=== PATIENT | male | born 1955 | race Caucasian/White ===

== ENCOUNTER 2018-01-04 15:30 | Inpatient (IN) ==
[2018-01-04] MEDS ORDERED: ALBUTEROL 2.5 MG/3 ML NEB RESP TX STA (15:50)
[2018-01-04] MEDS ORDERED: LEVOFLOXACIN INJ 500 MG in PREMIX 1 EACH IV STA (15:50)
[2018-01-04] MEDS ORDERED: SODIUM CHLORIDE 0.9% 1,000 ML IV STA (15:51)
[2018-01-04 16:43] LABS: Basophils % 0.2 % (0.0-0.8); Eosinophils # 0.1 10*3/uL (0.0-0.87); Eosinophils % 0.4 % (0.00-10.9); Hematocrit 39.6 VOL% (42.0-52.0); Hemoglobin 12.8 GM/DL (14.0-18.0); Immature Granulocytes % 0.8 %; Immature Granulocytes Absolute 0.13 #; Lymphocytes # 1.3 10*3/uL (1.4-4.0); Lymphocytes % 7.5 % (21.2-54.2); Mean Corpuscular HGB Conc 32.3 GM/DL (32-36); Mean Corpuscular Hemoglobin 29 PG (27-34); Mean Platelet Volume 8.7 FL (9.6-12.0); Monocytes # 1.7 10*3/uL (0.11-0.8); Monocytes % 10.1 % (1.7-12.7); Neutrophils # 13.4 10*3/uL (1.4-7.4); Platelet Count 455 T/CUMM (130-400); Red Cell Distribution Width 11.8 % (9.3-17.3); White Blood Count 16.6 T/CUMM (4-12)
[2018-01-04 16:51] LABS: INR 1.1; PT Patient Result 11.8 SECS; Partial Thromboplastin Time 31.5 SECS (0-40)
[2018-01-04 17:08] LABS: Bilirubin,Total 0.7 MG/DL (0.2-1.0); Calcium 8.6 MG/DL (8.5-10.1); Osmolality,Calculated 265.2 MOS/KG (273-304); Potassium 3.5 MMOL/L (3.5-5.1); Total Protein 7.7 G/DL (6.4-8.3)
[2018-01-04] MEDS ORDERED: ONDANSETRON 4 MG/2 ML VIAL IV PRN (17:48)
[2018-01-04] MEDS ORDERED: ALBUTEROL 2.5 MG/3 ML NEB RESP TX PRN (17:51)
[2018-01-04] MEDS ORDERED: NON-FORMULARY MEDICATION (Albuterol Sulfate [Ventolin Hfa] 2 PUFF) INH PRN (18:09)
[2018-01-04] MEDS ORDERED: DENOSUMAB 60 MG/ML SYRINGE SUBCUT SCH (18:30)
[2018-01-04] MEDS: ALBUTEROL/IPRATROPIUM 3 ML NEB RESP TX SCH (19:40)
[2018-01-04] MEDS ORDERED: cefTRIAXone 1,000 MG in SYRINGE 1 EACH IV SCH (21:00)
[2018-01-04] MEDS: busPIRone 10 MG TABLET PO SCH (21:31)
[2018-01-04] MEDS: clonazePAM 0.5 MG TABLET PO SCH (21:32)
[2018-01-04] MEDS: DOCUSATE SODIUM 100 MG CAPSULE PO SCH (21:32)
[2018-01-04] MEDS: FLUTICASONE/SALMETEROL 250-50 DISKUS 14 DOSE INH SCH (21:32)
[2018-01-04] MEDS: SODIUM CHLORIDE 0.9% 1,000 ML IV SCH (21:32)
[2018-01-04] MEDS: AZITHROMYCIN INJ 500 MG in SODIUM CHLORIDE 0.9% 250 ML IV SCH (21:38)
[2018-01-05] MEDS: ALBUTEROL/IPRATROPIUM 3 ML NEB RESP TX SCH ×4 (00:46→19:08)
[2018-01-05 06:34] LABS: Basophils # 0.1 10*3/uL (0.0-0.2); Basophils % 0.3 % (0.0-0.8); Eosinophils # 0.2 10*3/uL (0.0-0.87); Eosinophils % 1.1 % (0.00-10.9); Hemoglobin 11.9 GM/DL (14.0-18.0); Immature Granulocytes % 0.9 %; Immature Granulocytes Absolute 0.14 #; Lymphocytes # 2.3 10*3/uL (1.4-4.0); Lymphocytes % 14.6 % (21.2-54.2); Mean Corpuscular HGB Conc 31.3 GM/DL (32-36); Mean Corpuscular Hemoglobin 29 PG (27-34); Mean Corpuscular Volume 92.2 FL (87-102); Monocytes # 1.9 10*3/uL (0.11-0.8); Monocytes % 12.4 % (1.7-12.7); Neutrophils # 11.1 10*3/uL (1.4-7.4); Neutrophils % 70.7 % (38.7-73.9); Platelet Count 482 T/CUMM (130-400); Red Blood Count 4.12 MC/CUMM (3.8-5.5); Red Cell Distribution Width 11.9 % (9.3-17.3); White Blood Count 15.7 T/CUMM (4-12)
[2018-01-05 06:49] LABS: Calcium 7.8 MG/DL (8.5-10.1); Osmolality,Calculated 276.4 MOS/KG (273-304); Potassium 3.7 MMOL/L (3.5-5.1)
[2018-01-05] MEDS: ACETAMINOPHEN 325 MG TABLET PO PRN (08:36)
[2018-01-05] MEDS: MAGNESIUM OXIDE 400 MG TABLET PO SCH (08:37)
[2018-01-05] MEDS: CLOPIDOGREL 75 MG TABLET PO SCH (08:37)
[2018-01-05] MEDS: DOCUSATE SODIUM 100 MG CAPSULE PO SCH ×3 (08:37→21:12)
[2018-01-05] MEDS: busPIRone 10 MG TABLET PO SCH ×2 (08:37→21:12)
[2018-01-05] MEDS: clonazePAM 0.5 MG TABLET PO SCH ×2 (08:37→21:12)
[2018-01-05] MEDS: PANTOPRAZOLE 40 MG TABLET PO SCH (08:37)
[2018-01-05] MEDS: CHOLECALCIFEROL 5,000 UNIT TABLET PO SCH (08:41)
[2018-01-05] MEDS: FLUTICASONE/SALMETEROL 250-50 DISKUS 14 DOSE INH SCH ×2 (08:41→21:13)
[2018-01-05] MEDS ORDERED: NON-FORMULARY MEDICATION (Tiotropium Inhalation 18 MCG) INH SCH (09:00)
[2018-01-05] MEDS: CEFEPIME 1,000 MG in SYRINGE 1 EACH IV SCH (14:06)
[2018-01-05] MEDS ORDERED: TUBERCULIN SKIN TEST 0.1 ML SYRINGE INTRADERM ONE (15:00)
[2018-01-05] MEDS: SODIUM CHLORIDE 0.9% 1,000 ML IV SCH (17:39)
[2018-01-05] MEDS: AZITHROMYCIN INJ 500 MG in SODIUM CHLORIDE 0.9% 250 ML IV SCH (21:14)
[2018-01-05] MEDS: guaiFENesin/DM ER 600-30 MG TABLET PO PRN (21:36)
[2018-01-06] MEDS: CEFEPIME 1,000 MG in SYRINGE 1 EACH IV SCH ×3 (00:12→23:02)
[2018-01-06] MEDS: ACETAMINOPHEN 325 MG TABLET PO PRN (00:26)
[2018-01-06] MEDS: ALBUTEROL/IPRATROPIUM 3 ML NEB RESP TX SCH ×4 (00:52→19:28)
[2018-01-06] MEDS: methylPREDNISolone SOD SUC 40 MG/1 ML VIAL IV SCH ×2 (09:15→20:17)
[2018-01-06] MEDS: clonazePAM 0.5 MG TABLET PO SCH ×2 (09:15→20:15)
[2018-01-06] MEDS: CLOPIDOGREL 75 MG TABLET PO SCH (09:16)
[2018-01-06] MEDS: MAGNESIUM OXIDE 400 MG TABLET PO SCH (09:16)
[2018-01-06] MEDS: DOCUSATE SODIUM 100 MG CAPSULE PO SCH ×2 (09:16→20:15)
[2018-01-06] MEDS: PANTOPRAZOLE 40 MG TABLET PO SCH (09:16)
[2018-01-06] MEDS: CHOLECALCIFEROL 5,000 UNIT TABLET PO SCH (09:16)
[2018-01-06] MEDS: busPIRone 10 MG TABLET PO SCH ×2 (09:16→20:15)
[2018-01-06] MEDS: FLUTICASONE/SALMETEROL 250-50 DISKUS 14 DOSE INH SCH ×2 (09:17→20:16)
[2018-01-06] MEDS: SODIUM CHLORIDE 0.9% 1,000 ML IV SCH (13:40)
[2018-01-06] MEDS ORDERED: OXYMETAZOLINE 0.05% NASAL SPRAY 15 ML BOTTLE BOTH NARES PRN (15:08)
[2018-01-06] MEDS ORDERED: ALPRAZolam 0.25 MG TABLET PO PRN (15:12)
[2018-01-06] MEDS ORDERED: SODIUM CHLORIDE 0.65% NASAL SPRAY 45 ML BOTTLE BOTH NARES PRN (15:12)
[2018-01-06] MEDS: AZITHROMYCIN 250 MG TABLET PO SCH (20:15)
[2018-01-07] MEDS: ALBUTEROL/IPRATROPIUM 3 ML NEB RESP TX SCH ×4 (00:57→19:11)
[2018-01-07 06:55] LABS: Hematocrit 35.4 VOL% (42.0-52.0); Hemoglobin 10.8 GM/DL (14.0-18.0); Immature Granulocytes % 0.5 %; Immature Granulocytes Absolute 0.03 #; Lymphocytes # 0.5 10*3/uL (1.4-4.0); Mean Corpuscular HGB Conc 30.5 GM/DL (32-36); Mean Corpuscular Hemoglobin 28 PG (27-34); Mean Corpuscular Volume 93.2 FL (87-102); Monocytes # 0.5 10*3/uL (0.11-0.8); Monocytes % 8.1 % (1.7-12.7); Neutrophils # 5.2 10*3/uL (1.4-7.4); Neutrophils % 83.4 % (38.7-73.9); Platelet Count 356 T/CUMM (130-400); Red Cell Distribution Width 11.8 % (9.3-17.3); White Blood Count 6.3 T/CUMM (4-12)
[2018-01-07 07:09] LABS: Calcium 8.2 MG/DL (8.5-10.1); Potassium 4.2 MMOL/L (3.5-5.1)
[2018-01-07 07:22] LABS: Calcium 8.1 MG/DL (8.5-10.1); Osmolality,Calculated 286.8 MOS/KG (273-304); Potassium 4.2 MMOL/L (3.5-5.1)
[2018-01-07] MEDS: PANTOPRAZOLE 40 MG TABLET PO SCH (08:45)
[2018-01-07] MEDS: MAGNESIUM OXIDE 400 MG TABLET PO SCH (08:45)
[2018-01-07] MEDS: DOCUSATE SODIUM 100 MG CAPSULE PO SCH ×2 (08:45→21:17)
[2018-01-07] MEDS: CLOPIDOGREL 75 MG TABLET PO SCH (08:45)
[2018-01-07] MEDS: clonazePAM 0.5 MG TABLET PO SCH ×2 (08:45→21:18)
[2018-01-07] MEDS: methylPREDNISolone SOD SUC 40 MG/1 ML VIAL IV SCH ×2 (08:45→21:17)
[2018-01-07] MEDS: CHOLECALCIFEROL 5,000 UNIT TABLET PO SCH (08:45)
[2018-01-07] MEDS: busPIRone 10 MG TABLET PO SCH ×2 (08:45→21:17)
[2018-01-07] MEDS: guaiFENesin/DM ER 600-30 MG TABLET PO PRN (08:45)
[2018-01-07] MEDS: FLUTICASONE/SALMETEROL 250-50 DISKUS 14 DOSE INH SCH ×2 (08:49→21:18)
[2018-01-07] MEDS: CEFEPIME 1,000 MG in SYRINGE 1 EACH IV SCH (12:28)
[2018-01-07] MEDS: SODIUM CHLORIDE 0.9% 1,000 ML IV SCH (12:28)
[2018-01-07] MEDS: AZITHROMYCIN 250 MG TABLET PO SCH (21:17)
[2018-01-08] MEDS: ALBUTEROL/IPRATROPIUM 3 ML NEB RESP TX SCH ×4 (00:03→19:30)
[2018-01-08] MEDS: CEFEPIME 1,000 MG in SYRINGE 1 EACH IV SCH ×2 (01:57→12:51)
[2018-01-08 05:42] LABS: Basophils % 0.1 % (0.0-0.8); Hematocrit 35.2 VOL% (42.0-52.0); Hemoglobin 10.8 GM/DL (14.0-18.0); Immature Granulocytes % 0.8 %; Immature Granulocytes Absolute 0.07 #; Lymphocytes # 0.5 10*3/uL (1.4-4.0); Mean Corpuscular HGB Conc 30.7 GM/DL (32-36); Mean Corpuscular Hemoglobin 29 PG (27-34); Mean Corpuscular Volume 93.4 FL (87-102); Mean Platelet Volume 8.9 FL (9.6-12.0); Monocytes # 0.6 10*3/uL (0.11-0.8); Neutrophils # 8.1 10*3/uL (1.4-7.4); Neutrophils % 88.1 % (38.7-73.9); Platelet Count 393 T/CUMM (130-400); Red Blood Count 3.77 MC/CUMM (3.8-5.5); Red Cell Distribution Width 11.9 % (9.3-17.3); White Blood Count 9.2 T/CUMM (4-12)
[2018-01-08 06:07] LABS: Osmolality,Calculated 286.8 MOS/KG (273-304); Potassium 4.1 MMOL/L (3.5-5.1)
[2018-01-08] MEDS: methylPREDNISolone SOD SUC 40 MG/1 ML VIAL IV SCH ×2 (06:40→21:58)
[2018-01-08] MEDS: clonazePAM 0.5 MG TABLET PO SCH ×2 (10:24→22:15)
[2018-01-08] MEDS: CLOPIDOGREL 75 MG TABLET PO SCH (10:24)
[2018-01-08] MEDS: busPIRone 10 MG TABLET PO SCH ×2 (10:24→22:16)
[2018-01-08] MEDS: FLUTICASONE/SALMETEROL 250-50 DISKUS 14 DOSE INH SCH ×2 (10:25→22:20)
[2018-01-08] MEDS: DOCUSATE SODIUM 100 MG CAPSULE PO SCH ×2 (10:25→22:15)
[2018-01-08] MEDS: CHOLECALCIFEROL 5,000 UNIT TABLET PO SCH (10:25)
[2018-01-08] MEDS: PANTOPRAZOLE 40 MG TABLET PO SCH (10:29)
[2018-01-08] MEDS: SODIUM CHLORIDE 0.9% 1,000 ML IV SCH (10:29)
[2018-01-08] MEDS: MAGNESIUM OXIDE 400 MG TABLET PO SCH (10:29)
[2018-01-08] MEDS: guaiFENesin/DM ER 600-30 MG TABLET PO PRN (22:15)
[2018-01-08] MEDS: AZITHROMYCIN 250 MG TABLET PO SCH (22:16)
[2018-01-09] MEDS: CEFEPIME 1,000 MG in SYRINGE 1 EACH IV SCH ×2 (00:29→11:40)
[2018-01-09] MEDS: ALBUTEROL/IPRATROPIUM 3 ML NEB RESP TX SCH ×4 (00:36→19:01)
[2018-01-09] MEDS: SODIUM CHLORIDE 0.9% 1,000 ML IV SCH (06:00)
[2018-01-09] MEDS: busPIRone 10 MG TABLET PO SCH ×2 (08:33→22:59)
[2018-01-09] MEDS: MAGNESIUM OXIDE 400 MG TABLET PO SCH (08:33)
[2018-01-09] MEDS: CHOLECALCIFEROL 5,000 UNIT TABLET PO SCH (08:33)
[2018-01-09] MEDS: DOCUSATE SODIUM 100 MG CAPSULE PO SCH ×2 (08:33→22:58)
[2018-01-09] MEDS: clonazePAM 0.5 MG TABLET PO SCH ×2 (08:33→22:59)
[2018-01-09] MEDS: methylPREDNISolone SOD SUC 40 MG/1 ML VIAL IV SCH ×2 (08:33→21:57)
[2018-01-09] MEDS: CLOPIDOGREL 75 MG TABLET PO SCH (08:33)
[2018-01-09] MEDS: PANTOPRAZOLE 40 MG TABLET PO SCH (08:33)
[2018-01-09] MEDS: FLUTICASONE/SALMETEROL 250-50 DISKUS 14 DOSE INH SCH ×2 (08:36→23:01)
[2018-01-09] MEDS: guaiFENesin/DM ER 600-30 MG TABLET PO PRN ×2 (16:25→22:59)
[2018-01-09] MEDS: ACETAMINOPHEN 325 MG TABLET PO PRN (22:58)
[2018-01-09] MEDS: AZITHROMYCIN 250 MG TABLET PO SCH (22:59)
[2018-01-10] MEDS: CEFEPIME 1,000 MG in SYRINGE 1 EACH IV SCH ×2 (00:22→11:26)
[2018-01-10] MEDS: ALBUTEROL/IPRATROPIUM 3 ML NEB RESP TX SCH ×4 (00:35→19:25)
[2018-01-10] MEDS: SODIUM CHLORIDE 0.9% 1,000 ML IV SCH ×2 (02:12→21:41)
[2018-01-10 06:13] LABS: Basophils % 0.1 % (0.0-0.8); Hematocrit 39.7 VOL% (42.0-52.0); Immature Granulocytes % 0.9 %; Immature Granulocytes Absolute 0.07 #; Lymphocytes # 0.6 10*3/uL (1.4-4.0); Lymphocytes % 7.4 % (21.2-54.2); Mean Corpuscular HGB Conc 30.2 GM/DL (32-36); Mean Corpuscular Hemoglobin 29 PG (27-34); Mean Corpuscular Volume 95.9 FL (87-102); Mean Platelet Volume 8.6 FL (9.6-12.0); Monocytes # 0.4 10*3/uL (0.11-0.8); Monocytes % 4.9 % (1.7-12.7); Neutrophils # 6.8 10*3/uL (1.4-7.4); Neutrophils % 86.7 % (38.7-73.9); Platelet Count 394 T/CUMM (130-400); Red Blood Count 4.14 MC/CUMM (3.8-5.5); Red Cell Distribution Width 11.9 % (9.3-17.3); White Blood Count 7.8 T/CUMM (4-12)
[2018-01-10 06:32] LABS: Calcium 7.9 MG/DL (8.5-10.1); Osmolality,Calculated 287.8 MOS/KG (273-304); Potassium 4.7 MMOL/L (3.5-5.1)
[2018-01-10] MEDS: DOCUSATE SODIUM 100 MG CAPSULE PO SCH ×2 (09:12→21:43)
[2018-01-10] MEDS: clonazePAM 0.5 MG TABLET PO SCH ×2 (09:12→21:43)
[2018-01-10] MEDS: FLUTICASONE/SALMETEROL 250-50 DISKUS 14 DOSE INH SCH ×2 (09:12→21:56)
[2018-01-10] MEDS: methylPREDNISolone SOD SUC 40 MG/1 ML VIAL IV SCH ×2 (09:12→21:40)
[2018-01-10] MEDS: CHOLECALCIFEROL 5,000 UNIT TABLET PO SCH (09:12)
[2018-01-10] MEDS: CLOPIDOGREL 75 MG TABLET PO SCH (09:12)
[2018-01-10] MEDS: PANTOPRAZOLE 40 MG TABLET PO SCH (09:12)
[2018-01-10] MEDS: busPIRone 10 MG TABLET PO SCH ×2 (09:12→21:43)
[2018-01-10] MEDS: MAGNESIUM OXIDE 400 MG TABLET PO SCH (09:12)
[2018-01-10] MEDS ORDERED: MAGNESIUM HYDROXIDE SUSP 30 ML UDCUP PO PRN ×2 (10:38→12:33)
[2018-01-10] MEDS ORDERED: POLYETHYLENE GLYCOL POWDER 17 GM PACK PO PRN (12:32)
[2018-01-10] MEDS: guaiFENesin/DM ER 600-30 MG TABLET PO PRN (21:43)
[2018-01-10] MEDS: AZITHROMYCIN 250 MG TABLET PO SCH (21:49)
[2018-01-11] MEDS: ALBUTEROL/IPRATROPIUM 3 ML NEB RESP TX SCH ×4 (00:26→20:27)
[2018-01-11] MEDS: CEFEPIME 1,000 MG in SYRINGE 1 EACH IV SCH ×2 (00:32→12:55)
[2018-01-11] MEDS: CLOPIDOGREL 75 MG TABLET PO SCH (09:41)
[2018-01-11] MEDS: MAGNESIUM OXIDE 400 MG TABLET PO SCH (09:41)
[2018-01-11] MEDS: busPIRone 10 MG TABLET PO SCH ×2 (09:41→21:01)
[2018-01-11] MEDS: clonazePAM 0.5 MG TABLET PO SCH ×2 (09:41→21:01)
[2018-01-11] MEDS: CHOLECALCIFEROL 5,000 UNIT TABLET PO SCH (09:41)
[2018-01-11] MEDS: methylPREDNISolone SOD SUC 40 MG/1 ML VIAL IV SCH ×2 (09:42→21:02)
[2018-01-11] MEDS: FLUTICASONE/SALMETEROL 250-50 DISKUS 14 DOSE INH SCH ×2 (09:42→21:04)
[2018-01-11] MEDS: PANTOPRAZOLE 40 MG TABLET PO SCH (09:42)
[2018-01-11] MEDS: DOCUSATE SODIUM 100 MG CAPSULE PO SCH ×2 (09:42→21:02)
[2018-01-11] MEDS: SODIUM CHLORIDE 0.9% 1,000 ML IV SCH (18:18)
[2018-01-11] MEDS: AZITHROMYCIN 250 MG TABLET PO SCH (21:01)
[2018-01-11] MEDS: guaiFENesin/DM ER 600-30 MG TABLET PO PRN (21:01)
[2018-01-12] MEDS: ALBUTEROL/IPRATROPIUM 3 ML NEB RESP TX SCH ×2 (00:23→07:38)
[2018-01-12] MEDS: CEFEPIME 1,000 MG in SYRINGE 1 EACH IV SCH (01:03)
[2018-01-12 08:09] VITALS: BP 125/61
[2018-01-12] MEDS: CLOPIDOGREL 75 MG TABLET PO SCH (09:14)
[2018-01-12] MEDS: DOCUSATE SODIUM 100 MG CAPSULE PO SCH (09:15)
[2018-01-12] MEDS: CHOLECALCIFEROL 5,000 UNIT TABLET PO SCH (09:15)
[2018-01-12] MEDS: busPIRone 10 MG TABLET PO SCH (09:15)
[2018-01-12] MEDS: MAGNESIUM OXIDE 400 MG TABLET PO SCH (09:15)
[2018-01-12] MEDS: clonazePAM 0.5 MG TABLET PO SCH (09:15)
[2018-01-12] MEDS: PANTOPRAZOLE 40 MG TABLET PO SCH (09:15)
[2018-01-12] MEDS: methylPREDNISolone SOD SUC 40 MG/1 ML VIAL IV SCH (09:16)
[2018-01-12] MEDS: FLUTICASONE/SALMETEROL 250-50 DISKUS 14 DOSE INH SCH (09:16)
[2018-01-13 16:12] LABS: TB2 Ag Minus Result -0.01 IU/mL
== END 2018-01-12 11:46 | disposition home or self-care (01) | DRG 139 ==
LOC: N.ED 15:30 → SUATTDRO 17:48 → N.EDINP 17:48 → N.5E 18:19 → N.ICU 01-05 15:43 → N.2E 01-07 18:06
PROVIDERS: ADMIT Internal Medicine; ATTEND Internal Medicine

== ENCOUNTER 2018-09-03 01:27 | Inpatient (IN) ==
[2018-09-03] MEDS ORDERED: BISACODYL 5 MG TABLET PO PRN (03:56)
[2018-09-03] MEDS ORDERED: ONDANSETRON 4 MG/2 ML VIAL IV PRN (03:56)
[2018-09-03] MEDS ORDERED: ACETAMINOPHEN 325 MG TABLET PO PRN (03:56)
[2018-09-03] MEDS ORDERED: NICOTINE 21 MG/24 HR PATCH TRANSDERM PRN (03:56)
[2018-09-03] MEDS ORDERED: guaiFENesin/DM ER 600-30 MG TABLET PO PRN (03:56)
[2018-09-03] MEDS ORDERED: diphenhydrAMINE CAP 25 MG CAPSULE PO PRN (03:56)
[2018-09-03] MEDS ORDERED: traZODone 50 MG TABLET PO PRN (03:56)
[2018-09-03 04:15] LABS: Allen Test Positive
[2018-09-03 04:17] LABS: ABG HCO3 28.8 MMOL/L (20-26); ABG Oxygen Saturation 95.4 % (95-100); ABG PCO2 60.1 MM HG (35-48); ABG PH 7.346 (7.35-7.45); ABG PO2 79.9 MM HG (80-95); ABG TCO2 28.5 MMOL/L (23-27)
[2018-09-03] MEDS: methylPREDNISolone SOD SUC 40 MG/1 ML VIAL IV SCH ×2 (04:47→11:22)
[2018-09-03] MEDS: MORPHINE 4 MG/1 ML VIAL IV PRN (05:48)
[2018-09-03 05:51] LABS: Basophils % 0.2 % (0.0-0.8); Eosinophils % 0.1 % (0.00-10.9); Hematocrit 43.6 VOL% (42.0-52.0); Hemoglobin 13.4 GM/DL (14.0-18.0); Immature Granulocytes % 0.2 %; Immature Granulocytes Absolute 0.02 #; Lymphocytes # 0.3 10*3/uL (1.4-4.0); Lymphocytes % 3.6 % (21.2-54.2); Mean Corpuscular HGB Conc 30.7 GM/DL (32-36); Mean Corpuscular Volume 93.6 FL (87-102); Mean Platelet Volume 9.2 FL (9.6-12.0); Monocytes % 1.2 % (1.7-12.7); Neutrophils % 94.7 % (38.7-73.9); Platelet Count 268 T/CUMM (130-400); Red Blood Count 4.66 MC/CUMM (3.8-5.5); Red Cell Distribution Width 11.7 % (9.3-17.3); White Blood Count 8.6 T/CUMM (4-12)
[2018-09-03 05:54] LABS: PT Patient Result 11.1 SECS; Partial Thromboplastin Time 26.7 SECS (0-40)
[2018-09-03 06:10] LABS: Calcium 8.5 MG/DL (8.5-10.1); Osmolality,Calculated 277.5 MOS/KG (273-304)
[2018-09-03 06:13] LABS: Band Neutrophils 1 % (0-10); Lymphocytes 6 % (20-55); Platelet Estimate Adequate; Segmented Neutrophils 92 % (50-85); Total Cells Counted 100
[2018-09-03 06:14] LABS: Hypochromasia 1+
[2018-09-03] MEDS: ALBUTEROL/IPRATROPIUM 3 ML NEB RESP TX SCH ×3 (07:35→19:12)
[2018-09-03] MEDS: cefTRIAXone 1,000 MG in SYRINGE 1 EACH IV SCH (07:39)
[2018-09-03] MEDS: AZITHROMYCIN INJ 500 MG in SODIUM CHLORIDE 0.9% 250 ML IV SCH (07:39)
[2018-09-03] MEDS: PANTOPRAZOLE 40 MG TABLET PO SCH ×2 (07:40→08:22)
[2018-09-03] MEDS ORDERED: MAGNESIUM SULF RIDER 2 GM in PREMIX 1 EACH IV PRN (14:47)
[2018-09-03] MEDS ORDERED: DIAZEPAM 5 MG TABLET PO ONE (14:47)
[2018-09-03] MEDS ORDERED: diphenhydrAMINE CAP 25 MG CAPSULE PO ONE (14:47)
[2018-09-03] MEDS ORDERED: POTASSIUM CHLORIDE RIDER 10 MEQ in PREMIX 1 EACH IV PRN (14:47)
[2018-09-03] MEDS ORDERED: LIDOCAINE 1% 20 ML VIAL ONE (15:17)
[2018-09-03] MEDS ORDERED: HYDROmorphone 2 MG/1 ML VIAL ONE (15:29)
[2018-09-03] MEDS ORDERED: MIDAZOLAM 2 MG/2 ML VIAL ONE (15:29)
[2018-09-03] MEDS ORDERED: ASPIRIN CHEW 81 MG TABLET PO ONE (15:50)
[2018-09-03] MEDS ORDERED: ADENOSINE 90 MG/30 ML VIAL IV ONE (16:07)
[2018-09-03] MEDS ORDERED: ENOXAPARIN 30 MG/0.3 ML SYRINGE ONE (16:11)
[2018-09-03] MEDS: CLOPIDOGREL 75 MG TABLET PO SCH (17:37)
[2018-09-03] MEDS: ARFORMOTEROL 15 MCG/2 ML NEB RESP TX SCH (19:12)
[2018-09-04] MEDS: methylPREDNISolone SOD SUC 40 MG/1 ML VIAL IV SCH ×5 (00:39→18:04)
[2018-09-04] MEDS: ALBUTEROL/IPRATROPIUM 3 ML NEB RESP TX SCH ×4 (00:45→19:16)
[2018-09-04 06:53] LABS: Basophils % 0.1 % (0.0-0.8); Eosinophils % 0.1 % (0.00-10.9); Hematocrit 40.1 VOL% (42.0-52.0); Hemoglobin 12.6 GM/DL (14.0-18.0); Immature Granulocytes % 0.4 %; Immature Granulocytes Absolute 0.04 #; Lymphocytes # 0.6 10*3/uL (1.4-4.0); Mean Corpuscular HGB Conc 31.4 GM/DL (32-36); Mean Corpuscular Volume 94.1 FL (87-102); Mean Platelet Volume 9.8 FL (9.6-12.0); Monocytes % 5.5 % (1.7-12.7); Neutrophils % 86.9 % (38.7-73.9); Platelet Count 213 T/CUMM (130-400); Red Blood Count 4.26 MC/CUMM (3.8-5.5); Red Cell Distribution Width 11.6 % (9.3-17.3); White Blood Count 9.1 T/CUMM (4-12)
[2018-09-04 07:20] LABS: CKMB % 5.4 %; Osmolality,Calculated 282.4 MOS/KG (273-304)
[2018-09-04 07:22] LABS: Troponin I 0.245 NG/ML (0.00-0.045)
[2018-09-04] MEDS: ARFORMOTEROL 15 MCG/2 ML NEB RESP TX SCH ×2 (07:48→19:16)
[2018-09-04] MEDS: AZITHROMYCIN INJ 500 MG in SODIUM CHLORIDE 0.9% 250 ML IV SCH (08:01)
[2018-09-04] MEDS: cefTRIAXone 1,000 MG in SYRINGE 1 EACH IV SCH (08:02)
[2018-09-04] MEDS: ASPIRIN CHEW 81 MG TABLET PO SCH (08:03)
[2018-09-04] MEDS: PANTOPRAZOLE 40 MG TABLET PO SCH (08:03)
[2018-09-04] MEDS: CLOPIDOGREL 75 MG TABLET PO SCH (08:03)
[2018-09-04] MEDS: ROSUVASTATIN 20 MG TABLET PO SCH (11:04)
[2018-09-04] MEDS: MORPHINE 4 MG/1 ML VIAL IV PRN (20:49)
[2018-09-04] MEDS ORDERED: LOSARTAN 25 MG TABLET PO SCH (21:00)
[2018-09-04] MEDS ORDERED: traZODone 50 MG TABLET PO SCH (21:00)
[2018-09-05] MEDS: ALBUTEROL/IPRATROPIUM 3 ML NEB RESP TX SCH ×2 (01:33→07:30)
[2018-09-05] MEDS: methylPREDNISolone SOD SUC 40 MG/1 ML VIAL IV SCH ×3 (03:25→10:08)
[2018-09-05] MEDS: ARFORMOTEROL 15 MCG/2 ML NEB RESP TX SCH (07:30)
[2018-09-05 07:49] VITALS: BP 121/76
[2018-09-05] MEDS: AZITHROMYCIN INJ 500 MG in SODIUM CHLORIDE 0.9% 250 ML IV SCH (08:20)
[2018-09-05] MEDS: PANTOPRAZOLE 40 MG TABLET PO SCH (08:21)
[2018-09-05] MEDS: cefTRIAXone 1,000 MG in SYRINGE 1 EACH IV SCH (08:21)
[2018-09-05] MEDS: ASPIRIN CHEW 81 MG TABLET PO SCH (08:21)
[2018-09-05] MEDS: CLOPIDOGREL 75 MG TABLET PO SCH (08:21)
[2018-09-05] MEDS: ROSUVASTATIN 20 MG TABLET PO SCH (08:21)
[2018-09-05] MEDS: MORPHINE 4 MG/1 ML VIAL IV PRN (08:28)
[2018-09-05] MEDS ORDERED: BISACODYL 5 MG TABLET PO SCH (10:00)
== END 2018-09-05 13:33 | disposition home or self-care (01) | DRG 140 ==
LOC: N.5E 01:32 → SUATTDRO 02:51
PROVIDERS: ADMIT Internal Medicine Nephrology; ATTEND Internal Medicine
PROC: CLCCHCL (ICD-10-PCS; 2018-09-03 15:45)

== ENCOUNTER 2018-10-11 22:34 | Inpatient (IN) ==
[2018-10-11 23:15] LABS: Basophils % 0.3 % (0.0-0.8); Eosinophils # 0.1 10*3/uL (0.0-0.87); Eosinophils % 0.9 % (0.00-10.9); Hematocrit 40.7 VOL% (42.0-52.0); Hemoglobin 13.2 GM/DL (14.0-18.0); Immature Granulocytes % 0.3 %; Immature Granulocytes Absolute 0.04 #; Lymphocytes # 0.9 10*3/uL (1.4-4.0); Lymphocytes % 7.7 % (21.2-54.2); Mean Corpuscular HGB Conc 32.4 GM/DL (32-36); Mean Corpuscular Volume 90.2 FL (87-102); Mean Platelet Volume 8.8 FL (9.6-12.0); Monocytes % 10.4 % (1.7-12.7); Neutrophils % 80.4 % (38.7-73.9); Platelet Count 323 T/CUMM (130-400); Red Blood Count 4.51 MC/CUMM (3.8-5.5); Red Cell Distribution Width 11.5 % (9.3-17.3); White Blood Count 11.6 T/CUMM (4-12)
[2018-10-11] MEDS ORDERED: ALBUTEROL/IPRATROPIUM 3 ML NEB RESP TX STA (23:21)
[2018-10-11] MEDS ORDERED: ONDANSETRON 4 MG/2 ML VIAL IV STA (23:21)
[2018-10-11] MEDS ORDERED: MORPHINE 4 MG/1 ML VIAL IV STA (23:21)
[2018-10-11] MEDS ORDERED: methylPREDNISolone SOD SUC 125 MG/2 ML VIAL IV STA (23:21)
[2018-10-11] MEDS ORDERED: ASPIRIN 325 MG TABLET PO STA (23:21)
[2018-10-11 23:23] LABS: INR 1.1; PT Patient Result 11.4 SECS (9.6-12.2)
[2018-10-11 23:29] LABS: Alanine Aminotransferase 234 U/L (16-61); Albumin 3.5 G/DL (3.4-5.0); Alkaline Phosphatase 67 U/L (45-117); Aspartate Amino Transferase 159 U/L (0-37); Blood Urea Nitrogen 12 MG/DL (7-18); CKMB % 5.5 %; Glucose 99 MG/DL (74-106); Osmolality,Calculated 257.9 MOS/KG (273-304); Total Protein 7.5 G/DL (6.4-8.3); Troponin I < 0.015 NG/ML (0.00-0.045)
[2018-10-11 23:45] LABS: ABG Base Excess 3.4 MMOL/L (-2.5-2.5); ABG HCO3 27.5 MMOL/L (20-26); ABG Oxygen Saturation 98.5 % (95-100); ABG PCO2 58.2 MM HG (35-48); ABG PH 7.335 (7.35-7.45); ABG TCO2 27.4 MMOL/L (23-27); Allen Test Positive
[2018-10-12] MEDS ORDERED: ONDANSETRON 4 MG/2 ML VIAL IV PRN (03:44)
[2018-10-12] MEDS ORDERED: ACETAMINOPHEN 325 MG TABLET PO PRN (03:44)
[2018-10-12 04:55] LABS: Basophils % 0.1 % (0.0-0.8); Hematocrit 37.4 VOL% (42.0-52.0); Hemoglobin 12.1 GM/DL (14.0-18.0); Immature Granulocytes % 0.6 %; Immature Granulocytes Absolute 0.07 #; Lymphocytes # 0.4 10*3/uL (1.4-4.0); Lymphocytes % 3.4 % (21.2-54.2); Mean Corpuscular HGB Conc 32.4 GM/DL (32-36); Mean Corpuscular Volume 88.6 FL (87-102); Mean Platelet Volume 9.1 FL (9.6-12.0); Monocytes % 0.9 % (1.7-12.7); Platelet Count 389 T/CUMM (130-400); Red Blood Count 4.22 MC/CUMM (3.8-5.5); Red Cell Distribution Width 11.5 % (9.3-17.3); White Blood Count 12.3 T/CUMM (4-12)
[2018-10-12 05:07] LABS: Albumin 3.4 G/DL (3.4-5.0); Calcium 8.2 MG/DL (8.5-10.1); Osmolality,Calculated 260.8 MOS/KG (273-304); Total Protein 7.6 G/DL (6.4-8.3)
[2018-10-12] MEDS: CEFEPIME 1,000 MG in SODIUM CHLORIDE 0.9% 100 ML IV SCH ×5 (05:09→22:15)
[2018-10-12 05:25] LABS: Band Neutrophils 1 % (0-10); Hypochromasia 1+; Lymphocytes 5 % (20-55); Microcytosis Slight; Segmented Neutrophils 92 % (50-85); Total Cells Counted 100
[2018-10-12] MEDS ORDERED: ALBUTEROL/IPRATROPIUM 3 ML NEB RESP TX SCH (07:00)
[2018-10-12 07:13] LABS: Apearance,Urine CLEAR (Clear); Bilirubin,Urine Negative (Negative); Blood, Urine Small mg/dL (Negative); Glucose,Urine (UA) Negative (Negative); Ketones,Urine 5 mg/dL (Negative); Nitrite,Urine Negative (Negative); Protein,Urine Negative; RBC,Urine 1 /HPF (0-4); Urine Color Straw (Yellow); Urine Specific Gravity 1.029 (1.001-1.035); Urine Urobilinogen < 2.0 EU/DL (0.2-1.0); WBC,Urine <1 /HPF (0-6)
[2018-10-12] MEDS ORDERED: MAGNESIUM SULF RIDER 100 ML IV PRN (07:28)
[2018-10-12] MEDS: ALBUTEROL/IPRATROPIUM 3 ML NEB RESP TX SCH ×4 (07:45→19:21)
[2018-10-12 08:09] LABS: Barbiturates Screen,Urine Negative (Negative); Benzodiazepines Screen,Urine Negative (Negative); Cannabinoid Screen,Urine Negative (Negative); Opiate Screen,Urine Positive (Negative); Phencyclidine Screen,Urine Negative (Negative)
[2018-10-12] MEDS: FLUTICASONE/SALMETEROL 250-50 DISKUS 14 DOSE INH SCH ×2 (09:21→22:18)
[2018-10-12] MEDS: clonazePAM 0.5 MG TABLET PO SCH ×2 (09:23→22:14)
[2018-10-12] MEDS: busPIRone 10 MG TABLET PO SCH ×2 (09:23→22:14)
[2018-10-12] MEDS: PANTOPRAZOLE 40 MG TABLET PO SCH (09:24)
[2018-10-12] MEDS: MAGNESIUM OXIDE 400 MG TABLET PO SCH (09:24)
[2018-10-12] MEDS: CHOLECALCIFEROL 5,000 UNIT TABLET PO SCH (09:24)
[2018-10-12] MEDS: AZITHROMYCIN 250 MG TABLET PO SCH (09:25)
[2018-10-12] MEDS: predniSONE 20 MG TABLET PO SCH ×2 (09:25→22:14)
[2018-10-12] MEDS: MORPHINE 4 MG/1 ML VIAL IV PRN ×2 (16:10→22:14)
[2018-10-13] MEDS: ALBUTEROL/IPRATROPIUM 3 ML NEB RESP TX SCH ×7 (00:08→23:50)
[2018-10-13 05:01] LABS: Basophils % 0.2 % (0.0-0.8); Hematocrit 27.9 VOL% (42.0-52.0); Hemoglobin 9.4 GM/DL (14.0-18.0); Immature Granulocytes % 0.6 %; Immature Granulocytes Absolute 0.07 #; Lymphocytes # 0.4 10*3/uL (1.4-4.0); Lymphocytes % 3.4 % (21.2-54.2); Mean Corpuscular HGB Conc 33.7 GM/DL (32-36); Mean Corpuscular Volume 88.3 FL (87-102); Mean Platelet Volume 9.1 FL (9.6-12.0); Monocytes % 5.4 % (1.7-12.7); Neutrophils % 90.4 % (38.7-73.9); Platelet Count 284 T/CUMM (130-400); Red Blood Count 3.16 MC/CUMM (3.8-5.5); Red Cell Distribution Width 11.5 % (9.3-17.3); White Blood Count 11.9 T/CUMM (4-12)
[2018-10-13] MEDS: CEFEPIME 1,000 MG in SODIUM CHLORIDE 0.9% 100 ML IV SCH ×2 (05:16→10:20)
[2018-10-13 05:35] LABS: Hypochromasia 1+; Lymphocytes 1 % (20-55); Microcytosis Slight; Segmented Neutrophils 95 % (50-85); Total Cells Counted 100
[2018-10-13 05:36] LABS: Ovalocytes Slight; Platelet Estimate Normal
[2018-10-13 05:40] LABS: Albumin 3.2 G/DL (3.4-5.0); Bilirubin,Total 0.5 MG/DL (0.2-1.0); Calcium 8.3 MG/DL (8.5-10.1); Osmolality,Calculated 276.7 MOS/KG (273-304); Total Protein 6.4 G/DL (6.4-8.3)
[2018-10-13] MEDS: predniSONE 20 MG TABLET PO SCH ×2 (09:34→21:46)
[2018-10-13] MEDS: clonazePAM 0.5 MG TABLET PO SCH ×2 (09:34→21:45)
[2018-10-13] MEDS: AZITHROMYCIN 250 MG TABLET PO SCH (09:34)
[2018-10-13] MEDS: PANTOPRAZOLE 40 MG TABLET PO SCH (09:34)
[2018-10-13] MEDS: CHOLECALCIFEROL 5,000 UNIT TABLET PO SCH (09:35)
[2018-10-13] MEDS: MAGNESIUM OXIDE 400 MG TABLET PO SCH (09:35)
[2018-10-13] MEDS: busPIRone 10 MG TABLET PO SCH ×2 (09:35→21:45)
[2018-10-13] MEDS: FLUTICASONE/SALMETEROL 250-50 DISKUS 14 DOSE INH SCH ×2 (09:38→21:49)
[2018-10-13] MEDS: MORPHINE 4 MG/1 ML VIAL IV PRN ×3 (10:24→23:30)
[2018-10-13] MEDS: MAGNESIUM HYDROXIDE SUSP 30 ML UDCUP PO PRN (23:30)
[2018-10-14] MEDS: ALBUTEROL/IPRATROPIUM 3 ML NEB RESP TX SCH ×5 (03:30→19:40)
[2018-10-14 05:23] LABS: Basophils % 0.1 % (0.0-0.8); Hemoglobin 8.7 GM/DL (14.0-18.0); Immature Granulocytes % 0.6 %; Immature Granulocytes Absolute 0.07 #; Lymphocytes # 0.4 10*3/uL (1.4-4.0); Lymphocytes % 3.3 % (21.2-54.2); Mean Corpuscular HGB Conc 32.2 GM/DL (32-36); Mean Corpuscular Volume 91.2 FL (87-102); Mean Platelet Volume 9.1 FL (9.6-12.0); Platelet Count 298 T/CUMM (130-400); Red Blood Count 2.96 MC/CUMM (3.8-5.5); Red Cell Distribution Width 11.9 % (9.3-17.3); White Blood Count 11.2 T/CUMM (4-12)
[2018-10-14 05:52] LABS: Hypochromasia 1+; Lymphocytes 4 % (20-55); Microcytosis Slight; Platelet Estimate Adequate; Segmented Neutrophils 91 % (50-85); Total Cells Counted 100
[2018-10-14 05:59] LABS: Bilirubin,Total 0.4 MG/DL (0.2-1.0); Osmolality,Calculated 278.4 MOS/KG (273-304); Total Protein 6.1 G/DL (6.4-8.3)
[2018-10-14] MEDS: MORPHINE 4 MG/1 ML VIAL IV PRN ×2 (07:20→13:38)
[2018-10-14] MEDS: predniSONE 20 MG TABLET PO SCH ×2 (09:15→20:16)
[2018-10-14] MEDS: PANTOPRAZOLE 40 MG TABLET PO SCH (09:15)
[2018-10-14] MEDS: MAGNESIUM OXIDE 400 MG TABLET PO SCH (09:15)
[2018-10-14] MEDS: AZITHROMYCIN 250 MG TABLET PO SCH (09:15)
[2018-10-14] MEDS: clonazePAM 0.5 MG TABLET PO SCH ×2 (09:17→20:16)
[2018-10-14] MEDS: CHOLECALCIFEROL 5,000 UNIT TABLET PO SCH (09:17)
[2018-10-14] MEDS: busPIRone 10 MG TABLET PO SCH ×2 (09:17→20:16)
[2018-10-14] MEDS: FLUTICASONE/SALMETEROL 250-50 DISKUS 14 DOSE INH SCH ×2 (09:22→20:15)
[2018-10-14 12:09] LABS: Ferritin 206.6 ng/ml (26-388)
[2018-10-14] MEDS: MAGNESIUM HYDROXIDE SUSP 30 ML UDCUP PO PRN (13:38)
[2018-10-15] MEDS: ALBUTEROL/IPRATROPIUM 3 ML NEB RESP TX SCH ×6 (00:35→19:22)
[2018-10-15] MEDS: MORPHINE 4 MG/1 ML VIAL IV PRN ×3 (00:47→22:01)
[2018-10-15 06:18] LABS: Hematocrit 26.7 VOL% (42.0-52.0); Hemoglobin 8.5 GM/DL (14.0-18.0); Immature Granulocytes % 0.6 %; Immature Granulocytes Absolute 0.05 #; Lymphocytes # 0.7 10*3/uL (1.4-4.0); Lymphocytes % 8.3 % (21.2-54.2); Mean Corpuscular HGB Conc 31.8 GM/DL (32-36); Mean Platelet Volume 8.9 FL (9.6-12.0); Monocytes % 7.3 % (1.7-12.7); Neutrophils % 83.8 % (38.7-73.9); Platelet Count 327 T/CUMM (130-400); Red Blood Count 2.87 MC/CUMM (3.8-5.5); Red Cell Distribution Width 12.1 % (9.3-17.3); White Blood Count 8.4 T/CUMM (4-12)
[2018-10-15 06:43] LABS: Bilirubin,Total 0.6 MG/DL (0.2-1.0); Calcium 7.8 MG/DL (8.5-10.1); Osmolality,Calculated 284.8 MOS/KG (273-304); Total Protein 6.1 G/DL (6.4-8.3)
[2018-10-15] MEDS ORDERED: LACTATED RINGERS 1,000 ML IV SCH (08:00)
[2018-10-15] MEDS ORDERED: SODIUM CHLORIDE 0.9% 1,000 ML IV PRN (08:03)
[2018-10-15] MEDS ORDERED: LIDOCAINE 2% 5 ML VIAL ONE (10:00)
[2018-10-15] MEDS ORDERED: ETOMIDATE 20 MG/10 ML VIAL IV ONE (10:00)
[2018-10-15] MEDS ORDERED: PROPOFOL 200 MG/20 ML VIAL IV ONE (10:00)
[2018-10-15] MEDS: PANTOPRAZOLE 40 MG TABLET PO SCH (14:13)
[2018-10-15] MEDS: clonazePAM 0.5 MG TABLET PO SCH ×2 (14:13→20:47)
[2018-10-15] MEDS: MAGNESIUM OXIDE 400 MG TABLET PO SCH (14:13)
[2018-10-15] MEDS: CHOLECALCIFEROL 5,000 UNIT TABLET PO SCH (14:13)
[2018-10-15] MEDS: busPIRone 10 MG TABLET PO SCH ×2 (14:14→20:47)
[2018-10-15] MEDS: predniSONE 20 MG TABLET PO SCH ×2 (14:15→20:47)
[2018-10-15] MEDS: AZITHROMYCIN 250 MG TABLET PO SCH (14:15)
[2018-10-15] MEDS: FLUTICASONE/SALMETEROL 250-50 DISKUS 14 DOSE INH SCH ×2 (14:21→20:47)
[2018-10-15] MEDS: cefTRIAXone 2,000 MG in SYRINGE 1 EACH IV SCH (18:22)
[2018-10-16] MEDS: ALBUTEROL/IPRATROPIUM 3 ML NEB RESP TX SCH ×6 (00:30→23:38)
[2018-10-16 05:04] LABS: Basophils % 0.1 % (0.0-0.8); Hematocrit 36.7 VOL% (42.0-52.0); Hemoglobin 11.6 GM/DL (14.0-18.0); Immature Granulocytes % 1.1 %; Lymphocytes # 0.6 10*3/uL (1.4-4.0); Lymphocytes % 6.1 % (21.2-54.2); Mean Corpuscular HGB Conc 31.6 GM/DL (32-36); Mean Corpuscular Volume 90.6 FL (87-102); Mean Platelet Volume 9.2 FL (9.6-12.0); Monocytes % 4.9 % (1.7-12.7); Neutrophils % 87.8 % (38.7-73.9); Platelet Count 340 T/CUMM (130-400); Red Blood Count 4.05 MC/CUMM (3.8-5.5); Red Cell Distribution Width 13.5 % (9.3-17.3); White Blood Count 9.4 T/CUMM (4-12)
[2018-10-16 05:59] LABS: Calcium 7.9 MG/DL (8.5-10.1); Osmolality,Calculated 284.1 MOS/KG (273-304)
[2018-10-16] MEDS: MORPHINE 4 MG/1 ML VIAL IV PRN ×2 (08:54→17:27)
[2018-10-16] MEDS: clonazePAM 0.5 MG TABLET PO SCH ×2 (08:59→21:15)
[2018-10-16] MEDS: predniSONE 20 MG TABLET PO SCH ×2 (08:59→21:15)
[2018-10-16] MEDS: busPIRone 10 MG TABLET PO SCH ×2 (08:59→21:15)
[2018-10-16] MEDS: MAGNESIUM OXIDE 400 MG TABLET PO SCH (08:59)
[2018-10-16] MEDS: CHOLECALCIFEROL 5,000 UNIT TABLET PO SCH (09:00)
[2018-10-16] MEDS: AZITHROMYCIN 250 MG TABLET PO SCH (09:00)
[2018-10-16] MEDS: FLUTICASONE/SALMETEROL 250-50 DISKUS 14 DOSE INH SCH ×2 (09:02→21:15)
[2018-10-16] MEDS: PANTOPRAZOLE 40 MG TABLET PO SCH (09:02)
[2018-10-16 09:36] LABS: Hepatitis B Core IgM Quant 0.25 Index; Hepatitis B Surface Ag Quant < 0.10 Index; Hepatitis B Surface Ag Result Negative (Negative); Hepatitis C Virus Ab Quant > 11.00 Index; Hepatitis C Virus Ab Result Positive (Negative)
[2018-10-16 16:12] LABS: Hepatitis C Virus Ab Quant > 11.00 Index; Hepatitis C Virus Ab Result Positive (Negative)
[2018-10-16] MEDS: cefTRIAXone 2,000 MG in SYRINGE 1 EACH IV SCH (16:33)
[2018-10-16] MEDS: MAGNESIUM HYDROXIDE SUSP 30 ML UDCUP PO PRN (17:27)
[2018-10-17 05:23] LABS: Basophils % 0.1 % (0.0-0.8); Hematocrit 36.7 VOL% (42.0-52.0); Hemoglobin 11.6 GM/DL (14.0-18.0); Immature Granulocytes % 0.5 %; Immature Granulocytes Absolute 0.05 #; Lymphocytes # 0.6 10*3/uL (1.4-4.0); Mean Corpuscular HGB Conc 31.6 GM/DL (32-36); Mean Corpuscular Volume 90.2 FL (87-102); Mean Platelet Volume 9.5 FL (9.6-12.0); Monocytes % 4.3 % (1.7-12.7); Neutrophils % 90.1 % (38.7-73.9); Platelet Count 345 T/CUMM (130-400); Red Blood Count 4.07 MC/CUMM (3.8-5.5); Red Cell Distribution Width 13.2 % (9.3-17.3)
[2018-10-17 05:24] LABS: Bilirubin,Total 0.4 MG/DL (0.2-1.0); Calcium 7.8 MG/DL (8.5-10.1); Osmolality,Calculated 282.4 MOS/KG (273-304); Total Protein 6.1 G/DL (6.4-8.3)
[2018-10-17] MEDS: ALBUTEROL/IPRATROPIUM 3 ML NEB RESP TX SCH (06:48)
[2018-10-17 07:19] VITALS: BP 164/80
[2018-10-17] MEDS: MAGNESIUM OXIDE 400 MG TABLET PO SCH (08:53)
[2018-10-17] MEDS: busPIRone 10 MG TABLET PO SCH (08:53)
[2018-10-17] MEDS: AZITHROMYCIN 250 MG TABLET PO SCH (08:53)
[2018-10-17] MEDS: PANTOPRAZOLE 40 MG TABLET PO SCH (08:53)
[2018-10-17] MEDS: predniSONE 20 MG TABLET PO SCH (08:53)
[2018-10-17] MEDS: CHOLECALCIFEROL 5,000 UNIT TABLET PO SCH (08:53)
[2018-10-17] MEDS: FLUTICASONE/SALMETEROL 250-50 DISKUS 14 DOSE INH SCH (08:54)
[2018-10-17] MEDS: clonazePAM 0.5 MG TABLET PO SCH (08:54)
== END 2018-10-17 12:04 | disposition home or self-care (01) | DRG 143 ==
LOC: EDUNIT# → EDBD → N.ED 22:34 → N.EDINP 22:34 → SUATTDRO 10-12 03:44 → N.ICU 10-12 05:22 → SUATTDRO 10-12 12:02 → N.2E 10-14 13:24
PROVIDERS: ADMIT Internal Medicine; ATTEND Internal Medicine Infectious Disease

== ENCOUNTER 2018-10-27 15:58 | Inpatient (IN) ==
[2018-10-27 16:43] LABS: Basophils % 0.2 % (0.0-0.8); Eosinophils % 0.2 % (0.00-10.9); Hematocrit 41.9 VOL% (42.0-52.0); Hemoglobin 13.3 GM/DL (14.0-18.0); Immature Granulocytes % 0.5 %; Immature Granulocytes Absolute 0.04 #; Lymphocytes # 0.3 10*3/uL (1.4-4.0); Lymphocytes % 2.8 % (21.2-54.2); Mean Corpuscular HGB Conc 31.7 GM/DL (32-36); Mean Corpuscular Volume 89.1 FL (87-102); Mean Platelet Volume 9.1 FL (9.6-12.0); Monocytes % 3.4 % (1.7-12.7); Neutrophils % 92.9 % (38.7-73.9); Platelet Count 249 T/CUMM (130-400); Red Cell Distribution Width 12.1 % (9.3-17.3); White Blood Count 8.9 T/CUMM (4-12)
[2018-10-27 17:04] LABS: Albumin 3.4 G/DL (3.4-5.0); Bilirubin,Total 0.7 MG/DL (0.2-1.0); Calcium 8.8 MG/DL (8.5-10.1); Total Protein 6.9 G/DL (6.4-8.3)
[2018-10-27] MEDS ORDERED: ALBUTEROL/IPRATROPIUM 3 ML NEB RESP TX STA (17:08)
[2018-10-27] MEDS ORDERED: ALBUTEROL 2.5 MG/3 ML NEB RESP TX PRN (18:21)
[2018-10-27] MEDS ORDERED: clonazePAM 0.5 MG TABLET PO PRN (18:21)
[2018-10-27] MEDS ORDERED: ALBUTEROL/IPRATROPIUM 3 ML NEB RESP TX PRN (18:21)
[2018-10-27] MEDS ORDERED: guaiFENesin/DM ER 600-30 MG TABLET PO PRN (18:27)
[2018-10-27] MEDS ORDERED: ACETAMINOPHEN 325 MG TABLET PO PRN (18:27)
[2018-10-27] MEDS ORDERED: ONDANSETRON 4 MG/2 ML VIAL IV PRN (18:27)
[2018-10-27] MEDS ORDERED: DENOSUMAB 60 MG/ML SYRINGE SUBCUT SCH (18:30)
[2018-10-27] MEDS: ALBUTEROL/IPRATROPIUM 3 ML NEB RESP TX SCH (19:17)
[2018-10-27] MEDS: LEVOFLOXACIN INJ 500 MG in PREMIX 1 EACH IV SCH (20:59)
[2018-10-27] MEDS: POLYETHYLENE GLYCOL POWDER 17 GM PACK PO SCH (21:00)
[2018-10-27] MEDS ORDERED: ENOXAPARIN 30 MG/0.3 ML SYRINGE SUBCUT SCH (21:00)
[2018-10-27] MEDS: methylPREDNISolone SOD SUC 40 MG/1 ML VIAL IV SCH (21:01)
[2018-10-27 21:57] LABS: Band Neutrophils 1 % (0-10); Lymphocytes 4 % (20-55); Segmented Neutrophils 91 % (50-85); Total Cells Counted 100
[2018-10-27 21:58] LABS: Platelet Estimate Adequate
[2018-10-27] MEDS: FLUTICASONE/SALMETEROL 250-50 DISKUS 14 DOSE INH SCH (22:01)
[2018-10-28] MEDS: ALBUTEROL/IPRATROPIUM 3 ML NEB RESP TX SCH ×4 (02:02→19:33)
[2018-10-28 04:31] LABS: Hematocrit 40.6 VOL% (42.0-52.0); Hemoglobin 12.9 GM/DL (14.0-18.0); Immature Granulocytes % 0.3 %; Immature Granulocytes Absolute 0.01 #; Lymphocytes # 0.4 10*3/uL (1.4-4.0); Lymphocytes % 10.9 % (21.2-54.2); Mean Corpuscular HGB Conc 31.8 GM/DL (32-36); Mean Corpuscular Volume 89.2 FL (87-102); Mean Platelet Volume 9.3 FL (9.6-12.0); Monocytes % 4.2 % (1.7-12.7); Neutrophils % 84.6 % (38.7-73.9); Platelet Count 183 T/CUMM (130-400); Red Blood Count 4.55 MC/CUMM (3.8-5.5); Red Cell Distribution Width 11.9 % (9.3-17.3); White Blood Count 3.8 T/CUMM (4-12)
[2018-10-28 04:52] LABS: Calcium 8.9 MG/DL (8.5-10.1); Osmolality,Calculated 277.7 MOS/KG (273-304)
[2018-10-28] MEDS: FLUTICASONE/SALMETEROL 250-50 DISKUS 14 DOSE INH SCH ×2 (08:25→21:11)
[2018-10-28] MEDS: CLOPIDOGREL 75 MG TABLET PO SCH (08:26)
[2018-10-28] MEDS: ASPIRIN CHEW 81 MG TABLET PO SCH (08:26)
[2018-10-28] MEDS: CHOLECALCIFEROL 5,000 UNIT TABLET PO SCH (08:26)
[2018-10-28] MEDS: PANTOPRAZOLE 40 MG TABLET PO SCH (08:26)
[2018-10-28] MEDS: MAGNESIUM OXIDE 400 MG TABLET PO SCH (08:26)
[2018-10-28] MEDS: POLYETHYLENE GLYCOL POWDER 17 GM PACK PO SCH ×2 (08:27→21:21)
[2018-10-28] MEDS: methylPREDNISolone SOD SUC 40 MG/1 ML VIAL IV SCH ×2 (08:28→21:21)
[2018-10-28] MEDS ORDERED: NON-FORMULARY MEDICATION (Tiotropium Bromide [Spiriva With Handihaler] 18 MCG) INH SCH (09:00)
[2018-10-28] MEDS: LACTULOSE 20 GM/30 ML UDCUP PO SCH (21:12)
[2018-10-28] MEDS: DOCUSATE SODIUM 100 MG CAPSULE PO SCH (21:12)
[2018-10-28] MEDS: ENOXAPARIN 40 MG/0.4 ML SYRINGE SUBCUT SCH (21:12)
[2018-10-28] MEDS: LEVOFLOXACIN INJ 500 MG in PREMIX 1 EACH IV SCH (21:13)
[2018-10-29] MEDS: ALBUTEROL/IPRATROPIUM 3 ML NEB RESP TX SCH ×4 (00:41→19:28)
[2018-10-29 06:04] LABS: Basophils % 0.1 % (0.0-0.8); Hematocrit 39.7 VOL% (42.0-52.0); Hemoglobin 12.4 GM/DL (14.0-18.0); Immature Granulocytes % 0.5 %; Immature Granulocytes Absolute 0.08 #; Lymphocytes # 0.5 10*3/uL (1.4-4.0); Lymphocytes % 3.5 % (21.2-54.2); Mean Corpuscular HGB Conc 31.2 GM/DL (32-36); Mean Corpuscular Volume 89.6 FL (87-102); Mean Platelet Volume 9.3 FL (9.6-12.0); Monocytes % 3.9 % (1.7-12.7); Platelet Count 252 T/CUMM (130-400); Red Blood Count 4.43 MC/CUMM (3.8-5.5); Red Cell Distribution Width 11.9 % (9.3-17.3)
[2018-10-29 06:24] LABS: Bilirubin,Direct 0.19 MG/DL (0.0-0.20); Bilirubin,Indirect 0.5 MG/DL (0.0-1.0); Bilirubin,Total 0.7 MG/DL (0.2-1.0); Calcium 8.5 MG/DL (8.5-10.1); Osmolality,Calculated 278.5 MOS/KG (273-304); Total Protein 6.8 G/DL (6.4-8.3)
[2018-10-29 06:36] LABS: Hypochromasia 1+; Lymphocytes 3 % (20-55); Platelet Estimate Adequate; Segmented Neutrophils 93 % (50-85); Total Cells Counted 100
[2018-10-29] MEDS ORDERED: DIAZEPAM 5 MG TABLET PO ONE (10:00)
[2018-10-29] MEDS: MAGNESIUM OXIDE 400 MG TABLET PO SCH (13:19)
[2018-10-29] MEDS: ASPIRIN CHEW 81 MG TABLET PO SCH (13:19)
[2018-10-29] MEDS: CHOLECALCIFEROL 5,000 UNIT TABLET PO SCH (13:20)
[2018-10-29] MEDS: CLOPIDOGREL 75 MG TABLET PO SCH (13:20)
[2018-10-29] MEDS: methylPREDNISolone SOD SUC 40 MG/1 ML VIAL IV SCH ×2 (13:20→21:10)
[2018-10-29] MEDS: DOCUSATE SODIUM 100 MG CAPSULE PO SCH ×2 (13:21→21:11)
[2018-10-29] MEDS: FLUTICASONE/SALMETEROL 250-50 DISKUS 14 DOSE INH SCH ×2 (13:21→21:12)
[2018-10-29] MEDS: LACTULOSE 20 GM/30 ML UDCUP PO SCH ×2 (13:22→21:11)
[2018-10-29] MEDS: PANTOPRAZOLE 40 MG TABLET PO SCH (13:26)
[2018-10-29] MEDS: POLYETHYLENE GLYCOL POWDER 17 GM PACK PO SCH ×2 (13:35→21:11)
[2018-10-29] MEDS: MORPHINE 4 MG/1 ML VIAL IV PRN (16:50)
[2018-10-29] MEDS: LEVOFLOXACIN INJ 500 MG in PREMIX 1 EACH IV SCH (21:12)
[2018-10-29] MEDS: ENOXAPARIN 40 MG/0.4 ML SYRINGE SUBCUT SCH (21:12)
[2018-10-30] MEDS: ALBUTEROL/IPRATROPIUM 3 ML NEB RESP TX SCH ×4 (00:42→19:19)
[2018-10-30 05:22] LABS: Hematocrit 37.8 VOL% (42.0-52.0); Hemoglobin 11.7 GM/DL (14.0-18.0); Immature Granulocytes % 0.5 %; Immature Granulocytes Absolute 0.05 #; Lymphocytes # 0.5 10*3/uL (1.4-4.0); Lymphocytes % 5.3 % (21.2-54.2); Mean Corpuscular Volume 91.1 FL (87-102); Monocytes % 6.1 % (1.7-12.7); Neutrophils % 88.1 % (38.7-73.9); Platelet Count 232 T/CUMM (130-400); Red Blood Count 4.15 MC/CUMM (3.8-5.5); Red Cell Distribution Width 12.1 % (9.3-17.3); White Blood Count 10.1 T/CUMM (4-12)
[2018-10-30 05:40] LABS: Calcium 8.9 MG/DL (8.5-10.1); Osmolality,Calculated 281.4 MOS/KG (273-304)
[2018-10-30] MEDS: LACTULOSE 20 GM/30 ML UDCUP PO SCH ×2 (08:27→20:43)
[2018-10-30] MEDS: POLYETHYLENE GLYCOL POWDER 17 GM PACK PO SCH ×2 (08:27→20:43)
[2018-10-30] MEDS: CHOLECALCIFEROL 5,000 UNIT TABLET PO SCH (08:28)
[2018-10-30] MEDS: DOCUSATE SODIUM 100 MG CAPSULE PO SCH ×2 (08:28→20:43)
[2018-10-30] MEDS: MAGNESIUM OXIDE 400 MG TABLET PO SCH (08:28)
[2018-10-30] MEDS: methylPREDNISolone SOD SUC 40 MG/1 ML VIAL IV SCH ×2 (08:29→20:42)
[2018-10-30] MEDS: ASPIRIN CHEW 81 MG TABLET PO SCH (08:29)
[2018-10-30] MEDS: MORPHINE 4 MG/1 ML VIAL IV PRN (08:29)
[2018-10-30] MEDS: PANTOPRAZOLE 40 MG TABLET PO SCH (08:29)
[2018-10-30] MEDS: CLOPIDOGREL 75 MG TABLET PO SCH (08:29)
[2018-10-30] MEDS: FLUTICASONE 50 MCG NASAL SPRAY 16 GM BOTTLE BOTH NARES SCH ×2 (10:35→20:42)
[2018-10-30] MEDS: FLUTICASONE/SALMETEROL 250-50 DISKUS 14 DOSE INH SCH ×2 (10:35→20:42)
[2018-10-30] MEDS: amLODIPine 2.5 MG TABLET PO SCH (10:35)
[2018-10-30] MEDS: ENOXAPARIN 40 MG/0.4 ML SYRINGE SUBCUT SCH (20:42)
[2018-10-30] MEDS: LEVOFLOXACIN INJ 500 MG in PREMIX 1 EACH IV SCH (20:44)
[2018-10-31] MEDS: ALBUTEROL/IPRATROPIUM 3 ML NEB RESP TX SCH ×4 (00:16→19:13)
[2018-10-31 05:50] LABS: Basophils % 0.1 % (0.0-0.8); Hematocrit 40.5 VOL% (42.0-52.0); Hemoglobin 12.5 GM/DL (14.0-18.0); Immature Granulocytes % 0.6 %; Immature Granulocytes Absolute 0.05 #; Lymphocytes # 0.8 10*3/uL (1.4-4.0); Lymphocytes % 9.2 % (21.2-54.2); Mean Corpuscular HGB Conc 30.9 GM/DL (32-36); Mean Corpuscular Volume 92.3 FL (87-102); Mean Platelet Volume 9.3 FL (9.6-12.0); Monocytes % 8.1 % (1.7-12.7); Platelet Count 254 T/CUMM (130-400); Red Blood Count 4.39 MC/CUMM (3.8-5.5); Red Cell Distribution Width 12.3 % (9.3-17.3)
[2018-10-31 06:08] LABS: Calcium 8.8 MG/DL (8.5-10.1); Osmolality,Calculated 284.1 MOS/KG (273-304)
[2018-10-31] MEDS: POLYETHYLENE GLYCOL POWDER 17 GM PACK PO SCH ×2 (08:53→22:13)
[2018-10-31] MEDS: DOCUSATE SODIUM 100 MG CAPSULE PO SCH ×2 (08:53→22:13)
[2018-10-31] MEDS: CLOPIDOGREL 75 MG TABLET PO SCH (08:53)
[2018-10-31] MEDS: MAGNESIUM OXIDE 400 MG TABLET PO SCH (08:53)
[2018-10-31] MEDS: FLUTICASONE/SALMETEROL 250-50 DISKUS 14 DOSE INH SCH ×2 (08:53→22:14)
[2018-10-31] MEDS: ASPIRIN CHEW 81 MG TABLET PO SCH (08:53)
[2018-10-31] MEDS: amLODIPine 2.5 MG TABLET PO SCH (08:53)
[2018-10-31] MEDS: CHOLECALCIFEROL 5,000 UNIT TABLET PO SCH (08:53)
[2018-10-31] MEDS: LACTULOSE 20 GM/30 ML UDCUP PO SCH ×2 (08:53→22:14)
[2018-10-31] MEDS: FLUTICASONE 50 MCG NASAL SPRAY 16 GM BOTTLE BOTH NARES SCH ×2 (08:54→22:14)
[2018-10-31] MEDS: methylPREDNISolone SOD SUC 40 MG/1 ML VIAL IV SCH ×2 (08:54→22:13)
[2018-10-31] MEDS: PANTOPRAZOLE 40 MG TABLET PO SCH (08:54)
[2018-10-31] MEDS: MORPHINE 4 MG/1 ML VIAL IV PRN (09:03)
[2018-10-31] MEDS: ENOXAPARIN 40 MG/0.4 ML SYRINGE SUBCUT SCH (22:14)
[2018-10-31] MEDS: LEVOFLOXACIN INJ 500 MG in PREMIX 1 EACH IV SCH (22:15)
[2018-11-01] MEDS: ALBUTEROL/IPRATROPIUM 3 ML NEB RESP TX SCH ×2 (00:40→07:05)
[2018-11-01] MEDS ORDERED: LEVOFLOXACIN 500 MG TABLET PO SCH (09:00)
[2018-11-01] MEDS: POLYETHYLENE GLYCOL POWDER 17 GM PACK PO SCH (09:30)
[2018-11-01] MEDS: LACTULOSE 20 GM/30 ML UDCUP PO SCH (09:30)
[2018-11-01] MEDS: MAGNESIUM OXIDE 400 MG TABLET PO SCH (09:31)
[2018-11-01] MEDS: DOCUSATE SODIUM 100 MG CAPSULE PO SCH (09:31)
[2018-11-01] MEDS: PANTOPRAZOLE 40 MG TABLET PO SCH (09:31)
[2018-11-01] MEDS: ASPIRIN CHEW 81 MG TABLET PO SCH (09:32)
[2018-11-01] MEDS: amLODIPine 2.5 MG TABLET PO SCH (09:32)
[2018-11-01] MEDS: CLOPIDOGREL 75 MG TABLET PO SCH (09:32)
[2018-11-01] MEDS: CHOLECALCIFEROL 5,000 UNIT TABLET PO SCH (09:32)
[2018-11-01] MEDS: FLUTICASONE 50 MCG NASAL SPRAY 16 GM BOTTLE BOTH NARES SCH (09:33)
[2018-11-01] MEDS: FLUTICASONE/SALMETEROL 250-50 DISKUS 14 DOSE INH SCH (09:33)
[2018-11-01] MEDS: methylPREDNISolone SOD SUC 40 MG/1 ML VIAL IV SCH (09:34)
[2018-11-01] MEDS: MORPHINE 4 MG/1 ML VIAL IV PRN (10:09)
[2018-11-01 11:41] VITALS: BP 176/84
== END 2018-11-01 14:22 | disposition home health service (06) | DRG 143 ==
LOC: EDUNIT# → EDBD → N.EDINP 15:58 → N.ED 15:58 → N.2E 19:24 → SUATTDRO 10-28 12:59
PROVIDERS: ADMIT Hospitalist; ATTEND Emergency Medicine